=== PATIENT | female | born 1985 | race Caucasian/White ===

== ENCOUNTER 2022-07-03 12:32 | Emergency (ER) | payer BC, SELFPAY ==
[2022-07-03 12:43] VITALS: BP 123/76; PULSE 76; RESP 16; TEMP 36.1; O2SAT 100
--- NOTE | 2022-07-03 12:48 | ED.URI ---
HPI - URI/Sore Throat General Chief Complaint: Upper Respiratory Infection Stated Complaint: Congestion,Sore Throat,Lt Ear Irritation Time Seen by Provider: 07/03/22 12:55 Source: patient and RN notes reviewed Mode of arrival: ambulatory Limitations: no limitations History of Present Illness HPI Narrative: 36-year-old female presents with concern for 6 day history of sinus congestion, drainage, cough. Reports she started having a sore throat yesterday and her ear started to hurt. She reports low-grade temperature, sweating, chills. Reports she has been taking [id number] cold medicines without relief. 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 EYES: Denies visual changes, redness, or discharge. ENT: Reports rhinorrhea, congestion, otalgia and sore throat. CARDIOVASCULAR: Denies chest pain, palpitations, or edema. RESPIRATORY: Reports cough. Denies dyspnea. GASTROINTESTINAL: Denies abdominal pain, nausea, vomiting, diarrhea SKIN: Denies rash or itching. MUSCULOSKELETAL: Denies myalgia. NEUROLOGIC: Denies headache. All systems reviewed & are unremarkable except as noted in HPI and below PMFSH Past Medical History Medical History (Updated 07/03/22 @ 13:04 by Michelle Rice NP) Neuropathy Surgical History Surgical History (Updated 01/18/20 @ 14:57 by Sharee Tee MD) Hx laparoscopic cholecystectomy S/P cholecystectomy Family History Family History (Updated 01/18/20 @ 15:00 by Sharee Tee MD) Other Depression Diabetes mellitus Hypertension Social History Social History (Updated 01/18/20 @ 14:46 by Mell Wilson) Social History: Smoking status: Never smoker Second hand tobacco smoke exposure: No Alcohol intake: never Substance use: never Substance use type: does not use Living arrangements: with family Occupation/Education: occupation Gender identity (if verbalized by the patient): Female Sexual Orientation (if Verbalized by the Patient): Straight or Heterosexual Comments At time of signature, agree with nursing past medical, surgical, social and family history. There is no relevant family history pertinent to the presenting complaint Exam Narrative: GENERAL: Nontoxic and in no acute distress. HEAD: Normocephalic EYES: PERRLA, conjunctivae clear ENT: Nares clear, turbinates edematous and erythematous, clear discharge. Mucous membranes moist. TM pearly francis with dull light reflex bilaterally; no tragal tenderness. Oropharynx not erythematous without lesions. Tonsils not enlarged and without exudate, no drooling, no hoarseness, no trismus, uvula midline. NECK: Supple. No lymphadenopathy CHEST: Clear to auscultation, breath sounds equal. No wheezing, rhonchi, rales, or stridor. No respiratory distress, speaks in full sentences. HEART: Regular rate and rhythm. No murmur heard. SKIN: Warm, mild diaphoresis, no rash. NEURO: Alert and oriented x3. PSYCH: Normal mood and affect Course Course Emergency Course: Patient is aware of diagnosis, understands and agrees to treatment plan. Anticipatory guidance given. Patient agrees to follow-up as directed and is aware of reasons to seek care at the emergency department. Portions of this record may have been created with voice recognition software Level of Care: Express Care Visit Vital Signs Vital signs: Vital Signs Temperature 96.9 F L 07/03/22 12:43 Pulse Rate 76 07/03/22 12:43 Respiratory Rate 16 07/03/22 12:43 Blood Pressure 123/76 07/03/22 12:43 Pulse Oximetry 100 07/03
== END 2022-07-03 13:06 | disposition home or self-care (01) ==
PROVIDERS: Emergency Provider Nurse Practitioner; PCP Family Medicine
DX: J32.9 Chronic sinusitis, unspecified (principal); J40 Bronchitis, not specified as acute or chronic; G62.9 Polyneuropathy, unspecified
CPT/HCPCS: 87081; 87880; 99213; G0463